=== PATIENT | female | born 1965 | race Caucasian/White ===

== ENCOUNTER 2017-07-07 12:40 | Inpatient (IN) | payer MEDICARE, MEDICAID ==
[~2017-07-07] VITALS: Ht 157.5 cm; Wt 60.8 kg
[2017-07-07 16:08] VITALS: BP 110/65
[2017-07-07] MEDS ORDERED: Norco 5mg/325mg tab ORAL PRN (17:45)
[2017-07-07] MEDS ORDERED: Norco 10mg/325mg tab ORAL PRN (17:45)
--- NOTE | 2017-07-07 17:50 | History & Physical ---
History and Physical History & Physicial Dictated for Int med-Dr Carranza no. [id number]. AGAPITO CHAPARRO Jul 07, 2017 17:50
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
[2017-07-07] MEDS: Levofloxacin 500mg tab ORAL SCH (19:05)
[2017-07-07 20:00] VITALS: BP 98/66
[2017-07-07 20:08] LABS: BASOPHILS % (AUTO) 1.1 % (0.0-2.0); EOSINOPHILS % (AUTO) 1.5 % (0.0-3.0); LYMPHOCYTES % (AUTO) 30.1 % (20.0-45.0); MEAN CORPUSCULAR HEMOGLOBIN 32.1 PG (27.0-31.0); MEAN CORPUSCULAR HGB CONC 33.9 G/DL (32.0-36.0); MEAN CORPUSCULAR VOLUME 95 FL (80-99); MEAN PLATELET VOLUME 9.4 FL (6.5-10.1); MONOCYTES % (AUTO) 8.1 % (1.0-10.0); NEUTROPHILS % (AUTO) 59.1 % (45.0-75.0); PLATELET COUNT 153 K/UL (150-450); RED BLOOD COUNT 3.69 M/UL (4.20-5.40); RED CELL DISTRIBUTION WIDTH 12.1 % (11.6-14.8); WHITE BLOOD COUNT 4.7 K/UL (4.8-10.8)
[2017-07-07 20:21] LABS: ALANINE AMINOTRANSFERASE 6 U/L (3-33); ALBUMIN/GLOBULIN RATIO 2.2 (1.0-2.7); ANION GAP 10 (5-15); ASPARTATE AMINO TRANSFERASE 11 U/L (5-40); CALCIUM 8.7 mg/dL (8.6-10.2); CARBON DIOXIDE 24 mEQ/L (20-30); CHLORIDE 106 mEQ/L (98-107); CREATININE 0.9 mg/dL (0.5-0.9); GLOMERULAR FILTRATION RATE > 60 mL/min (>60); HEMOLYSIS 7; POTASSIUM 4.3 mEQ/L (3.4-4.9); SODIUM 140 mEQ/L (135-145); TOTAL PROTEIN 5.2 g/dL (6.6-8.7)
[2017-07-07] MEDS: metroNIDAZOLE 500mg tab ORAL SCH (22:04)
[2017-07-08] VITALS: BP 95/61
[2017-07-08 04:00] VITALS: BP 99/64
[2017-07-08] MEDS: metroNIDAZOLE 500mg tab ORAL SCH ×3 (05:31→21:18)
[2017-07-08 07:12] LABS: BASOPHILS % (AUTO) 0.9 % (0.0-2.0); EOSINOPHILS % (AUTO) 2.7 % (0.0-3.0); LYMPHOCYTES % (AUTO) 33.3 % (20.0-45.0); MEAN CORPUSCULAR HEMOGLOBIN 31.4 PG (27.0-31.0); MEAN CORPUSCULAR HGB CONC 33.1 G/DL (32.0-36.0); MEAN CORPUSCULAR VOLUME 95 FL (80-99); MEAN PLATELET VOLUME 10.3 FL (6.5-10.1); MONOCYTES % (AUTO) 9.1 % (1.0-10.0); PLATELET COUNT 163 K/UL (150-450); RED BLOOD COUNT 3.74 M/UL (4.20-5.40); RED CELL DISTRIBUTION WIDTH 11.9 % (11.6-14.8); WHITE BLOOD COUNT 4.3 K/UL (4.8-10.8)
[2017-07-08 07:28] LABS: ANION GAP 8 (5-15); CARBON DIOXIDE 24 mEQ/L (20-30); CHLORIDE 108 mEQ/L (98-107); CREATININE 0.8 mg/dL (0.5-0.9); GLOMERULAR FILTRATION RATE > 60 mL/min (>60); HEMOLYSIS 2; POTASSIUM 3.7 mEQ/L (3.4-4.9); SODIUM 140 mEQ/L (135-145)
[2017-07-08 07:34] LABS: ALANINE AMINOTRANSFERASE 6 U/L (3-33); ALBUMIN/GLOBULIN RATIO 1.6 (1.0-2.7); AMYLASE 60 U/L (10-110); ANION GAP 8 (5-15); ASPARTATE AMINO TRANSFERASE 10 U/L (5-40); CALCIUM 9.1 mg/dL (8.6-10.2); CARBON DIOXIDE 24 mEQ/L (20-30); CHLORIDE 109 mEQ/L (98-107); CREATININE 0.8 mg/dL (0.5-0.9); GLOMERULAR FILTRATION RATE > 60 mL/min (>60); HEMOLYSIS 5; LIPASE 40 U/L (< 60); POTASSIUM 3.6 mEQ/L (3.4-4.9); SODIUM 141 mEQ/L (135-145); TOTAL PROTEIN 5.3 g/dL (6.6-8.7)
[2017-07-08 07:54] VITALS: BP 98/67
[2017-07-08] MEDS: Levofloxacin 500mg tab ORAL SCH (08:40)
[2017-07-08] MEDS: Heparin 5000 units/ml inj SUBQ SCH ×2 (08:46→20:53)
--- NOTE | 2017-07-08 11:02 | Diagnostic Imaging Report ---
Indication:Abdominal pain Technique: Grayscale and duplex Doppler imaging of the abdomen performed. Comparison: None Findings: The liver, demonstrated part of the pancreas, aorta and IVC, both kidneys, spleen appear unremarkable. Gallbladder is contracted. There is no biliary ductal dilatation identified. CBD 3 mm. Doppler evaluation of the main portal vein shows patency. There is no ascites. No hydronephrosis seen. Impression: No acute findings appreciated
[2017-07-08 12:12] VITALS: BP 117/75
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
[2017-07-08 16:00] VITALS: BP 112/74
--- NOTE | 2017-07-08 16:16 | Internal Med Progress Note ---
Subjective Date of Service: Jul 08, 2017 Physician Name Rusty Chaparro Attending Physician Pablito Carranza MD Current Medications Medications (Trade) Dose Ordered Sig/Ruel Route PRN Reason Start Time Stop Time Status Last Admin Dose Admin Acetaminophen (Tylenol) 650 mg Q4H PRN ORAL Mild Pain (Pain Scale 1-3) 07/07/17 17:30 08/06/17 17:29 Acetaminophen (Tylenol) 650 mg Q4H PRN ORAL fever 07/07/17 17:30 08/06/17 17:29 Acetaminophen/ Hydrocodone Bitart ([place] 10/325) 1 ea Q4H PRN ORAL Severe Pain (Pain Scale 7-10) 07/07/17 17:45 07/14/17 17:44 07/07/17 19:06 Acetaminophen/ Hydrocodone Bitart ([place] 5/325) 1 tab Q4H PRN ORAL Moderate Pain (Pain Scale 4-6) 07/07/17 17:45 07/14/17 17:44 Dextrose (Dextrose 50%) STAT PRN IV Hypoglycemia 07/07/17 17:30 08/06/17 17:29 Heparin Sodium (Porcine) (Heparin 5000 units/ml) 5,000 units EVERY 12 HOURS SUBQ 07/08/17 09:00 08/07/17 08:59 07/08/17 08:46 Levofloxacin (Levaquin) 500 mg DAILY ORAL 07/07/17 19:00 07/14/17 18:59 07/08/17 08:40 Metronidazole (Flagyl) 500 mg Q8HR ORAL 07/07/17 22:00 07/14/17 21:59 07/08/17 13:35 Pantoprazole (Protonix) 40 mg ACBREAKFAST ORAL 07/09/17 06:30 08/06/17 18:59 Sodium Chloride (Sodium Chloride 1000ml bag) 1,000 ml @ 75 mls/hr [id number] IVLG 07/07/17 19:00 08/06/17 18:59 07/08/17 08:41 Allergies: Coded Allergies: No Known Allergies (Unverified , 07/07/17) ROS Limited/Unobtainable: No Constitutional: Reports: no symptoms HEENT: Reports: no symptoms Cardiovascular: Reports: no symptoms Respiratory: Reports: no symptoms Gastrointestinal/Abdominal: Reports: abdominal pain Genitourinary: Reports: no symptoms Neurologic/Psychiatric: Reports: no symptoms Subjective 51 YO F admitted with RUQ pain. Cover for Int Med-Dr Carranza. Await GI consult Objective Last Vital Signs Date Time Temp Pulse Resp B/P Pulse Ox O2 Delivery O2 Flow Rate FiO2 07/08/17 12:12 97.4 55 18 117/75 97 Room Air Laboratory Tests Test 07/07/17 19:35 07/08/17 04:50 White Blood Count 4.7 K/UL (4.8-10.8) L 4.3 K/UL (4.8-10.8) L Red Blood Count 3.69 M/UL (4.20-5.40) L 3.74 M/UL (4.20-5.40) L Hemoglobin 11.8 G/DL (12.0-16.0) L 11.7 G/DL (12.0-16.0) L Hematocrit 34.9 % (37.0-47.0) L 35.4 % (37.0-47.0) L Mean Corpuscular Volume 95 FL (80-99) 95 FL (80-99) Mean Corpuscular Hemoglobin 32.1 PG (27.0-31.0) H 31.4 PG (27.0-31.0) H Mean Corpuscular Hemoglobin Concent 33.9 G/DL (32.0-36.0) 33.1 G/DL (32.0-36.0) Red Cell Distribution Width 12.1 % (11.6-14.8) 11.9 % (11.6-14.8) Platelet Count 153 K/UL (150-450) 163 K/UL (150-450) Mean Platelet Volume 9.4 FL (6.5-10.1) 10.3 FL (6.5-10.1) H Neutrophils (%) (Auto) 59.1 % (45.0-75.0) 54.0 % (45.0-75.0) Lymphocytes (%) (Auto) 30.1 % (20.0-45.0) 33.3 % (20.0-45.0) Monocytes (%) (Auto) 8.1 % (1.0-10.0) 9.1 % (1.0-10.0) Eosinophils (%) (Auto) 1.5 % (0.0-3.0) 2.7 % (0.0-3.0) Basophils (%) (Auto) 1.1 % (0.0-2.0) 0.9 % (0.0-2.0) Sodium Level 140 mEQ/L (135-145) 140 mEQ/L (135-145) Potassium Level 4.3 mEQ/L (3.4-4.9) 3.7 mEQ/L (3.4-4.9) Chloride Level 106 mEQ/L (98-107) 108 mEQ/L (98-107) H Carbon Dioxide Level 24 mEQ/L (20-30) 24 mEQ/L (20-30) Anion Gap 10 (5-15) 8 (5-15) Blood Urea Nitrogen 24 mg/dL (7-23) H 22 mg/dL (7-23) Creatinine 0.9 mg/dL (0.5-0.9) 0.8 mg/dL (0.5-0.9) Estimat Glomerular Filtration Rate > 60 mL/min (>60) > 60 mL/min (>60) Glucose Level 107 mg/dL (74-106) H 99 mg/dL (74-106) Calcium Level 8.7 mg/dL (8.6-10.2) 9.0 mg/dL (8.6-10.2) Total Bilirubin 0.4 mg/dL (0.0-1.2) 0.3 mg/dL (0.0-1.2) Aspartate Amino Transf (AST/SGOT) 11 U/L (5-40) 10 U/L (5-40) Alanine Aminotransferase (ALT/SGPT) 6 U/L (3-33) 6 U/L (3-33) Alkaline Phosphatase 69 U/L (35-104) 63 U/L (35-104) Total Protein 5.2 g/dL (6.6-8.7) L 5.3 g/dL (6.6-8.7) L Albumin 3.6 g/dL (3.5-5.2) 3.3 g/dL (3.5-5.2) L Globulin 1.6 g/dL 2.0 g/dL Albumin/Globulin Ratio 2.2 (1.0-2.7) 1.6 (1.0-2.7) Activated Partial Thromboplast Time 29 SEC (23-33) Amylase Level 60 U/L (10-110) Lipase 40 U/L (< 60) Intake and Output 07/07/17 07/08/17 19:00 07:00 Intake Total 120 ml 1305 ml Balance 120 ml 1305 ml Intake Oral 120 ml 480 ml IV Total 825 ml # Voids 2 Objective General: alert, cooperative, no distress, appears stated age Head: normocephalic, without obvious abnormality, atraumatic Eyes: conjunctivae/corneas clear. PERRL, EOM's intact Throat: lips, mucosa, and tongue normal. MMM Neck: supple, symmetrical, trachea midline, and no JVD Lungs: clear to auscultation bilaterally Heart: regular rate and rhythm, S1, S2 normal, no murmur, click, rub or gallop Abdomen: soft, non-tender, non-distended, bowel sounds normal; no masses or organomegaly Extremities: extremities normal, atraumatic, no cyanosis or edema Pulses: 2+ and symmetric Skin: skin color, texture, turgor normal; no rashes or lesions Neurologic: grossly normal, no focal deficits Assessment/Plan Problem List: (1) Diverticulosis Assessment & Plan: Cont flagyl and levaquin (2) PUD (peptic ulcer disease) Assessment & Plan: Cont protonix. AWait GI consult. (3) RUQ pain Assessment & Plan: ?gastritis vs peptic ulcer? Await GI consult. Status: not improved RUSTY CHAPARRO Jul 08, 2017 16:16
--- NOTE | 2017-07-08 18:24 | General Progress Note ---
Assessment/Plan Assessment/Plan GI Consult Dictated Will schedule for EGD in am. Thank you Salima Thompson MD Subjective Allergies: Coded Allergies: No Known Allergies (Unverified , 07/07/17) Objective Last 24 Hour Vital Signs Date Time Temp Pulse Resp B/P Pulse Ox O2 Delivery O2 Flow Rate FiO2 07/08/17 16:00 97.7 61 18 112/74 96 Room Air 07/08/17 12:12 97.4 55 18 117/75 97 Room Air 07/08/17 07:54 97.5 57 18 98/67 97 Room Air 07/08/17 04:00 97.7 63 18 99/64 97 Room Air 07/08/17 00:00 97.9 61 18 95/61 96 Room Air 07/07/17 20:00 97.9 59 18 98/66 95 Room Air Intake and Output 07/07/17 07/08/17 19:00 07:00 Intake Total 120 ml 1305 ml Balance 120 ml 1305 ml Intake Oral 120 ml 480 ml IV Total 825 ml # Voids 2 Laboratory Tests 07/07/17 19:35: White Blood Count 4.7L, Red Blood Count 3.69L, Hemoglobin 11.8L, Hematocrit 34.9L, Mean Corpuscular Volume 95, Mean Corpuscular Hemoglobin 32.1H, Mean Corpuscular Hemoglobin Concent 33.9, Red Cell Distribution Width 12.1, Platelet Count 153, Mean Platelet Volume 9.4, Neutrophils (%) (Auto) 59.1, Lymphocytes (% ) (Auto) 30.1, Monocytes (%) (Auto) 8.1, Eosinophils (%) (Auto) 1.5, Basophils ( %) (Auto) 1.1, Sodium Level 140, Potassium Level 4.3, Chloride Level 106, Carbon Dioxide Level 24, Anion Gap 10, Blood Urea Nitrogen 24H, Creatinine 0.9, Estimat Glomerular Filtration Rate > 60, Glucose Level 107H, Calcium Level 8.7, Total Bilirubin 0.4, Aspartate Amino Transf (AST/SGOT) 11, Alanine Aminotransferase (ALT/SGPT) 6, Alkaline Phosphatase 69, Total Protein 5.2L, Albumin 3.6, Globulin 1.6, Albumin/Globulin Ratio 2.2 07/08/17 04:50: White Blood Count 4.3L, Red Blood Count 3.74L, Hemoglobin 11.7L, Hematocrit 35.4L, Mean Corpuscular Volume 95, Mean Corpuscular Hemoglobin 31.4H, Mean Corpuscular Hemoglobin Concent 33.1, Red Cell Distribution Width 11.9, Platelet Count 163, Mean Platelet Volume 10.3H, Neutrophils (%) (Auto) 54.0, Lymphocytes (%) (Auto) 33.3, Monocytes (%) (Auto) 9.1, Eosinophils (%) (Auto) 2.7, Basophils (%) (Auto) 0.9, Sodium Level 140, Potassium Level 3.7, Chloride Level 108H, Carbon Dioxide Level 24, Anion Gap 8, Blood Urea Nitrogen 22, Creatinine 0.8, Estimat Glomerular Filtration Rate > 60, Glucose Level 99, Calcium Level 9.0, Total Bilirubin 0.3, Aspartate Amino Transf (AST/SGOT) 10, Alanine Aminotransferase (ALT/SGPT) 6, Alkaline Phosphatase 63, Total Protein 5.3L, Albumin 3.3L, Globulin 2.0, Albumin/Globulin Ratio 1.6, Activated Partial Thromboplast Time 29, Amylase Level 60, Lipase 40 Height (Feet): 5 Height (Inches): 2.50 Weight (Pounds): 135 MICHEALMINDAAGA Jul 08, 2017 18:24
[2017-07-08 19:56] VITALS: BP 112/79
[2017-07-09] VITALS: BP 116/78
--- NOTE | 2017-07-09 02:30 | Consultation ---
ERROR in dictation Dictated again Salima Thompson MD [facility]ENTERPric[facility]
[2017-07-09 04:00] VITALS: BP 97/77
--- NOTE | 2017-07-09 04:30 | Consultation ---
DATE OF CONSULTATION: 07/08/2017 GASTROENTEROLOGY CONSULTATION CHIEF COMPLAINT: Abdominal pain. HISTORY OF PRESENT ILLNESS: The patient is a 51-year-old white woman, who presented to [place] and was subsequently transferred to [facility] for evaluation of abdominal pain. The patient stated that pain started about three days ago and was not associated with any nausea or vomiting, diarrhea or constipation, or hematochezia or melena. She has, however, had a history of peptic ulcer disease and has required a laparoscopic surgery for this ulcer, although the details are not available. She has not been taking any nonsteroidal anti-inflammatory drugs or antibiotics. She is able to keep food down. PAST MEDICAL HISTORY: History of asthma and history of peptic ulcer disease. PAST SURGICAL HISTORY: Status post laparoscopy for peptic ulcer disease. MEDICATIONS: See chart list for details. SOCIAL HISTORY: The patient smokes one pack of cigarettes per day. She does not drink alcohol. She has five children. Currently, she has a fiancee. She is homeless. FAMILY HISTORY: Noncontributory. REVIEW OF SYSTEMS: Otherwise negative. PHYSICAL EXAMINATION: GENERAL: Thin white woman, seen in a room, in no distress. HEENT: Normocephalic atraumatic. Sclerae anicteric. Dentition was poor. NECK: Supple. CHEST: Clear to auscultation. CARDIOVASCULAR: Revealed a regular rate. ABDOMEN: Soft, flat with good bowel sounds. EXTREMITIES: Revealed no edema. LABORATORY DATA: Noted. Ultrasound as noted. ASSESSMENT: This patient presents with epigastric abdominal pain of unclear etiology. The patient presented with history of peptic ulcer disease and therefore an endoscopy can be done to rule out upper GI tract ulcers. She had a negative abdominal ultrasound, which makes somewhat less likely. Liver enzymes were also not elevated. The patient was also advised that she required eventual screening colonoscopy. This as an outpatient. RECOMMENDATIONS: 1. Proton pump inhibitor. 2. Endoscopy tomorrow. 3. Outpatient screening colonoscopy. 4. Follow exam and symptoms. Thank you for asking me to participate in the care of this patient. Salima Thompson M.D. DR: NANCY JOB#: [id number] CC:
[2017-07-09] MEDS: metroNIDAZOLE 500mg tab ORAL SCH ×3 (05:07→21:08)
[2017-07-09 07:36] LABS: BASOPHILS % (AUTO) 1.4 % (0.0-2.0); EOSINOPHILS % (AUTO) 2.7 % (0.0-3.0); LYMPHOCYTES % (AUTO) 36.6 % (20.0-45.0); MEAN CORPUSCULAR HEMOGLOBIN 32.1 PG (27.0-31.0); MEAN CORPUSCULAR HGB CONC 33.8 G/DL (32.0-36.0); MEAN CORPUSCULAR VOLUME 95 FL (80-99); MEAN PLATELET VOLUME 9.6 FL (6.5-10.1); MONOCYTES % (AUTO) 8.9 % (1.0-10.0); NEUTROPHILS % (AUTO) 50.4 % (45.0-75.0); PLATELET COUNT 181 K/UL (150-450); RED BLOOD COUNT 3.99 M/UL (4.20-5.40); RED CELL DISTRIBUTION WIDTH 11.8 % (11.6-14.8); WHITE BLOOD COUNT 3.8 K/UL (4.8-10.8)
[2017-07-09 07:53] LABS: AMYLASE 63 U/L (10-110); ANION GAP 9 (5-15); CALCIUM 9.4 mg/dL (8.6-10.2); CARBON DIOXIDE 27 mEQ/L (20-30); CHLORIDE 104 mEQ/L (98-107); CREATININE 0.9 mg/dL (0.5-0.9); GLOMERULAR FILTRATION RATE > 60 mL/min (>60); HEMOLYSIS 5; LIPASE 36 U/L (< 60); POTASSIUM 4.2 mEQ/L (3.4-4.9); SODIUM 140 mEQ/L (135-145)
[2017-07-09 08:00] VITALS: BP 101/75
[2017-07-09] MEDS ORDERED: 1/2 NS 1000ml IV ONE (09:47)
--- NOTE | 2017-07-09 10:28 | GI Progress Note ---
Assessment/Plan Problems: (1) RUQ pain ICD Codes: R10.11 - Right upper quadrant pain SNOMED: 745661222 (2) Diverticulosis ICD Codes: K57.90 - Diverticulosis of intestine, part unspecified, without perforation or abscess without bleeding SNOMED: 413363846 (3) PUD (peptic ulcer disease) ICD Codes: K27.9 - Peptic ulcer, site unspecified, unspecified as acute or chronic, without hemorrhage or perforation SNOMED: 86786846 (4) Abdominal distention ICD Codes: R14.0 - Abdominal distension (gaseous) SNOMED: 60422742 Status: unchanged Status Narrative Discussed with Dr. Payan. Assessment/Plan abdominal US reviewed >> unremarkable EGD cancelled >> pt refused symptomatic treatment pain mgmt ppi advance diet outpatient GI procedures fu labs Subjective Subjective abdominal pain present Objective Last 24 Hour Vital Signs Date Time Temp Pulse Resp B/P Pulse Ox O2 Delivery O2 Flow Rate FiO2 07/09/17 08:00 97.3 64 20 101/75 97 Room Air 07/09/17 04:00 97.6 59 18 97/77 96 Room Air 07/09/17 00:00 97.8 58 18 116/78 98 Room Air 07/08/17 19:56 97.8 59 18 112/79 98 Room Air 07/08/17 16:00 97.7 61 18 112/74 96 Room Air 07/08/17 12:12 97.4 55 18 117/75 97 Room Air Intake and Output 07/08/17 07/09/17 19:00 07:00 Intake Total 1935 ml 375 ml Balance 1935 ml 375 ml Intake Oral 960 ml IV Total 975 ml 375 ml # Voids 3 2 # Bowel Movements 1 Laboratory Tests Test 07/09/17 05:50 White Blood Count 3.8 K/UL (4.8-10.8) L Red Blood Count 3.99 M/UL (4.20-5.40) L Hemoglobin 12.8 G/DL (12.0-16.0) Hematocrit 37.9 % (37.0-47.0) Mean Corpuscular Volume 95 FL (80-99) Mean Corpuscular Hemoglobin 32.1 PG (27.0-31.0) H Mean Corpuscular Hemoglobin Concent 33.8 G/DL (32.0-36.0) Red Cell Distribution Width 11.8 % (11.6-14.8) Platelet Count 181 K/UL (150-450) Mean Platelet Volume 9.6 FL (6.5-10.1) Neutrophils (%) (Auto) 50.4 % (45.0-75.0) Lymphocytes (%) (Auto) 36.6 % (20.0-45.0) Monocytes (%) (Auto) 8.9 % (1.0-10.0) Eosinophils (%) (Auto) 2.7 % (0.0-3.0) Basophils (%) (Auto) 1.4 % (0.0-2.0) Sodium Level 140 mEQ/L (135-145) Potassium Level 4.2 mEQ/L (3.4-4.9) Chloride Level 104 mEQ/L (98-107) Carbon Dioxide Level 27 mEQ/L (20-30) Anion Gap 9 (5-15) Blood Urea Nitrogen 18 mg/dL (7-23) Creatinine 0.9 mg/dL (0.5-0.9) Estimat Glomerular Filtration Rate > 60 mL/min (>60) Glucose Level 94 mg/dL (74-106) Calcium Level 9.4 mg/dL (8.6-10.2) Amylase Level 63 U/L (10-110) Lipase 36 U/L (< 60) Height (Feet): 5 Height (Inches): 2.00 Weight (Pounds): 134 General Appearance: no apparent distress, alert Cardiovascular: normal rate Respiratory/Chest: normal breath sounds, no respiratory distress Abdominal Exam: normal bowel sounds, non tender, soft Extremities: normal range of motion Alessandra Miramontes N.P. Jul 09, 2017 10:28
[2017-07-09] MEDS: Levofloxacin 500mg tab ORAL SCH (10:29)
[2017-07-09] MEDS: Heparin 5000 units/ml inj SUBQ SCH ×2 (10:34→21:08)
[2017-07-09 12:00] VITALS: BP 108/70
[2017-07-09 15:58] VITALS: BP 95/56
--- NOTE | 2017-07-09 18:59 | Internal Med Progress Note ---
Subjective Date of Service: Jul 09, 2017 Physician Name Rusty Chaparro Attending Physician Pablito Carranza MD Current Medications Medications (Trade) Dose Ordered Sig/Ruel Route PRN Reason Start Time Stop Time Status Last Admin Dose Admin Acetaminophen (Tylenol) 650 mg Q4H PRN ORAL Mild Pain (Pain Scale 1-3) 07/07/17 17:30 08/06/17 17:29 Acetaminophen (Tylenol) 650 mg Q4H PRN ORAL fever 07/07/17 17:30 08/06/17 17:29 Acetaminophen/ Hydrocodone Bitart ([place] 10/325) 1 ea Q4H PRN ORAL Severe Pain (Pain Scale 7-10) 07/07/17 17:45 07/14/17 17:44 07/07/17 19:06 Acetaminophen/ Hydrocodone Bitart ([place] 5/325) 1 tab Q4H PRN ORAL Moderate Pain (Pain Scale 4-6) 07/07/17 17:45 07/14/17 17:44 Dextrose (Dextrose 50%) STAT PRN IV Hypoglycemia 07/07/17 17:30 08/06/17 17:29 Heparin Sodium (Porcine) (Heparin 5000 units/ml) 5,000 units EVERY 12 HOURS SUBQ 07/08/17 09:00 08/07/17 08:59 07/09/17 10:34 Levofloxacin (Levaquin) 500 mg DAILY ORAL 07/07/17 19:00 07/14/17 18:59 07/09/17 10:29 Metronidazole (Flagyl) 500 mg Q8HR ORAL 07/07/17 22:00 07/14/17 21:59 07/09/17 14:36 Pantoprazole (Protonix) 40 mg ACBREAKFAST ORAL 07/09/17 06:30 08/06/17 18:59 Sodium Chloride (Sodium Chloride 1000ml bag) 1,000 ml @ 75 mls/hr [id number] IVLG 07/07/17 19:00 08/06/17 18:59 07/08/17 21:18 Allergies: Coded Allergies: No Known Allergies (Unverified , 07/07/17) ROS Limited/Unobtainable: No Constitutional: Reports: no symptoms HEENT: Reports: no symptoms Cardiovascular: Reports: no symptoms Respiratory: Reports: no symptoms Gastrointestinal/Abdominal: Reports: abdominal pain Genitourinary: Reports: no symptoms Neurologic/Psychiatric: Reports: no symptoms Subjective 51 YO F admitted with RUQ pain. Cover for Int Med-Dr Carranza. See GI consult- patient refused endoscopy Objective Last Vital Signs Date Time Temp Pulse Resp B/P Pulse Ox O2 Delivery O2 Flow Rate FiO2 07/09/17 15:58 98.2 82 18 95/56 98 Room Air Laboratory Tests Test 07/09/17 05:50 White Blood Count 3.8 K/UL (4.8-10.8) L Red Blood Count 3.99 M/UL (4.20-5.40) L Hemoglobin 12.8 G/DL (12.0-16.0) Hematocrit 37.9 % (37.0-47.0) Mean Corpuscular Volume 95 FL (80-99) Mean Corpuscular Hemoglobin 32.1 PG (27.0-31.0) H Mean Corpuscular Hemoglobin Concent 33.8 G/DL (32.0-36.0) Red Cell Distribution Width 11.8 % (11.6-14.8) Platelet Count 181 K/UL (150-450) Mean Platelet Volume 9.6 FL (6.5-10.1) Neutrophils (%) (Auto) 50.4 % (45.0-75.0) Lymphocytes (%) (Auto) 36.6 % (20.0-45.0) Monocytes (%) (Auto) 8.9 % (1.0-10.0) Eosinophils (%) (Auto) 2.7 % (0.0-3.0) Basophils (%) (Auto) 1.4 % (0.0-2.0) Sodium Level 140 mEQ/L (135-145) Potassium Level 4.2 mEQ/L (3.4-4.9) Chloride Level 104 mEQ/L (98-107) Carbon Dioxide Level 27 mEQ/L (20-30) Anion Gap 9 (5-15) Blood Urea Nitrogen 18 mg/dL (7-23) Creatinine 0.9 mg/dL (0.5-0.9) Estimat Glomerular Filtration Rate > 60 mL/min (>60) Glucose Level 94 mg/dL (74-106) Calcium Level 9.4 mg/dL (8.6-10.2) Amylase Level 63 U/L (10-110) Lipase 36 U/L (< 60) Intake and Output 07/08/17 07/09/17 19:00 07:00 Intake Total 1935 ml 375 ml Balance 1935 ml 375 ml Intake Oral 960 ml IV Total 975 ml 375 ml # Voids 3 2 # Bowel Movements 1 Objective General: alert, cooperative, no distress, appears stated age Head: normocephalic, without obvious abnormality, atraumatic Eyes: conjunctivae/corneas clear. PERRL, EOM's intact Throat: lips, mucosa, and tongue normal. MMM Neck: supple, symmetrical, trachea midline, and no JVD Lungs: clear to auscultation bilaterally Heart: regular rate and rhythm, S1, S2 normal, no murmur, click, rub or gallop Abdomen: soft, non-tender, non-distended, bowel sounds normal; no masses or organomegaly Extremities: extremities normal, atraumatic, no cyanosis or edema Pulses: 2+ and symmetric Skin: skin color, texture, turgor normal; no rashes or lesions Neurologic: grossly normal, no focal deficits Assessment/Plan Problem List: (1) Diverticulosis Assessment & Plan: Cont flagyl and levaquin (2) PUD (peptic ulcer disease) Assessment & Plan: Cont protonix. AWait GI consult. (3) RUQ pain Assessment & Plan: ?gastritis vs peptic ulcer? See - GI consult.; patient refused endoscopy Status: progressing Assessment/Plan discharge planning RUSTY CHAPARRO Jul 09, 2017 18:59
[2017-07-09 19:51] VITALS: BP 94/57
[2017-07-10] VITALS: BP 97/58
[2017-07-10 03:51] VITALS: BP 106/53
[2017-07-10] MEDS: metroNIDAZOLE 500mg tab ORAL SCH ×3 (06:28→20:28)
[2017-07-10 06:35] LABS: BASOPHILS % (AUTO) 1.2 % (0.0-2.0); EOSINOPHILS % (AUTO) 3.2 % (0.0-3.0); LYMPHOCYTES % (AUTO) 32.2 % (20.0-45.0); MEAN CORPUSCULAR HEMOGLOBIN 31.7 PG (27.0-31.0); MEAN CORPUSCULAR HGB CONC 33.3 G/DL (32.0-36.0); MEAN CORPUSCULAR VOLUME 95 FL (80-99); MEAN PLATELET VOLUME 9.5 FL (6.5-10.1); MONOCYTES % (AUTO) 8.5 % (1.0-10.0); NEUTROPHILS % (AUTO) 54.9 % (45.0-75.0); PLATELET COUNT 195 K/UL (150-450); RED BLOOD COUNT 4.14 M/UL (4.20-5.40); RED CELL DISTRIBUTION WIDTH 12.2 % (11.6-14.8); WHITE BLOOD COUNT 4.1 K/UL (4.8-10.8)
[2017-07-10 06:52] LABS: ANION GAP 9 (5-15); CALCIUM 9.7 mg/dL (8.6-10.2); CARBON DIOXIDE 28 mEQ/L (20-30); CHLORIDE 102 mEQ/L (98-107); CREATININE 0.9 mg/dL (0.5-0.9); GLOMERULAR FILTRATION RATE > 60 mL/min (>60); HEMOLYSIS 3; POTASSIUM 4.9 mEQ/L (3.4-4.9); SODIUM 139 mEQ/L (135-145)
[2017-07-10 08:00] VITALS: BP 104/73
[2017-07-10] MEDS: Levofloxacin 500mg tab ORAL SCH (09:10)
[2017-07-10] MEDS: Heparin 5000 units/ml inj SUBQ SCH ×2 (09:11→20:30)
[2017-07-10 12:00] VITALS: BP 100/68
--- NOTE | 2017-07-10 12:42 | GI Progress Note ---
Assessment/Plan Problems: (1) RUQ pain ICD Codes: R10.11 - Right upper quadrant pain SNOMED: 529459839 (2) Diverticulosis ICD Codes: K57.90 - Diverticulosis of intestine, part unspecified, without perforation or abscess without bleeding SNOMED: 880863627 (3) PUD (peptic ulcer disease) ICD Codes: K27.9 - Peptic ulcer, site unspecified, unspecified as acute or chronic, without hemorrhage or perforation SNOMED: 53248688 (4) Abdominal distention ICD Codes: R14.0 - Abdominal distension (gaseous) SNOMED: 20230875 Status: stable, unchanged Status Narrative Discussed with Dr. Payan. Assessment/Plan abdominal US reviewed >> unremarkable EGD cancelled >> pt refused symptomatic treatment pain mgmt ppi advance diet outpatient GI procedures fu labs Subjective Subjective abdominal pain Objective Last 24 Hour Vital Signs Date Time Temp Pulse Resp B/P Pulse Ox O2 Delivery O2 Flow Rate FiO2 07/10/17 08:00 97.8 54 18 104/73 99 Room Air 07/10/17 03:51 95.9 52 19 106/53 97 Room Air 07/10/17 00:00 97.6 59 18 97/58 96 Room Air 07/09/17 19:51 97.9 60 18 94/57 97 Room Air 07/09/17 15:58 98.2 82 18 95/56 98 Room Air Intake and Output 07/09/17 07/10/17 19:00 07:00 Intake Total 840 ml 225 ml Output Total 600 ml Balance 840 ml -375 ml Intake Oral 840 ml IV Total 0 ml 225 ml Output Urine Total 600 ml # Voids 5 # Bowel Movements 1 1 Laboratory Tests Test 07/10/17 05:40 White Blood Count 4.1 K/UL (4.8-10.8) L Red Blood Count 4.14 M/UL (4.20-5.40) L Hemoglobin 13.2 G/DL (12.0-16.0) Hematocrit 39.5 % (37.0-47.0) Mean Corpuscular Volume 95 FL (80-99) Mean Corpuscular Hemoglobin 31.7 PG (27.0-31.0) H Mean Corpuscular Hemoglobin Concent 33.3 G/DL (32.0-36.0) Red Cell Distribution Width 12.2 % (11.6-14.8) Platelet Count 195 K/UL (150-450) Mean Platelet Volume 9.5 FL (6.5-10.1) Neutrophils (%) (Auto) 54.9 % (45.0-75.0) Lymphocytes (%) (Auto) 32.2 % (20.0-45.0) Monocytes (%) (Auto) 8.5 % (1.0-10.0) Eosinophils (%) (Auto) 3.2 % (0.0-3.0) H Basophils (%) (Auto) 1.2 % (0.0-2.0) Sodium Level 139 mEQ/L (135-145) Potassium Level 4.9 mEQ/L (3.4-4.9) Chloride Level 102 mEQ/L (98-107) Carbon Dioxide Level 28 mEQ/L (20-30) Anion Gap 9 (5-15) Blood Urea Nitrogen 21 mg/dL (7-23) Creatinine 0.9 mg/dL (0.5-0.9) Estimat Glomerular Filtration Rate > 60 mL/min (>60) Glucose Level 115 mg/dL (74-106) H Calcium Level 9.7 mg/dL (8.6-10.2) Height (Feet): 5 Height (Inches): 2.00 Weight (Pounds): 134 General Appearance: no apparent distress, alert Cardiovascular: normal rate Respiratory/Chest: normal breath sounds, no respiratory distress Abdominal Exam: normal bowel sounds, non tender, soft Extremities: normal range of motion Alessandra Miramontes N.P. Jul 10, 2017 12:42
--- NOTE | 2017-07-10 15:49 | Pulmonology Progress Note ---
Assessment/Plan Problems: (1) RUQ pain (2) Abdominal distention Assessment/Plan NPO IV fluids for EGD symptomatic treatment social service consult Subjective ROS Limited/Unobtainable: No Interval Events: late note for 07/09, still c/o pain Allergies: Coded Allergies: No Known Allergies (Unverified , 07/07/17) Objective Last 24 Hour Vital Signs Date Time Temp Pulse Resp B/P Pulse Ox O2 Delivery O2 Flow Rate FiO2 07/10/17 12:00 97.2 58 18 100/68 97 Room Air 07/10/17 08:00 97.8 54 18 104/73 99 Room Air 07/10/17 03:51 95.9 52 19 106/53 97 Room Air 07/10/17 00:00 97.6 59 18 97/58 96 Room Air 07/09/17 19:51 97.9 60 18 94/57 97 Room Air 07/09/17 15:58 98.2 82 18 95/56 98 Room Air Intake and Output 07/09/17 07/10/17 19:00 07:00 Intake Total 840 ml 225 ml Output Total 600 ml Balance 840 ml -375 ml Intake Oral 840 ml IV Total 0 ml 225 ml Output Urine Total 600 ml # Voids 5 # Bowel Movements 1 1 General Appearance: WD/WN HEENT: normocephalic, atraumatic Respiratory/Chest: chest wall non-tender, normal breath sounds Breasts: no masses Cardiovascular: normal peripheral pulses Abdomen: normal bowel sounds, soft, non tender Extremities: no cyanosis Skin: no lesions 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, no motor/sensory deficits Laboratory Tests 07/10/17 05:40: White Blood Count 4.1L, Red Blood Count 4.14L, Hemoglobin 13.2, Hematocrit 39.5 , Mean Corpuscular Volume 95, Mean Corpuscular Hemoglobin 31.7H, Mean Corpuscular Hemoglobin Concent 33.3, Red Cell Distribution Width 12.2, Platelet Count 195, Mean Platelet Volume 9.5, Neutrophils (%) (Auto) 54.9, Lymphocytes (% ) (Auto) 32.2, Monocytes (%) (Auto) 8.5, Eosinophils (%) (Auto) 3.2H, Basophils (%) (Auto) 1.2, Sodium Level 139, Potassium Level 4.9, Chloride Level 102, Carbon Dioxide Level 28, Anion Gap 9, Blood Urea Nitrogen 21, Creatinine 0.9, Estimat Glomerular Filtration Rate > 60, Glucose Level 115H, Calcium Level 9.7 Current Medications Medications (Trade) Dose Ordered Sig/Ruel Route PRN Reason Start Time Stop Time Status Last Admin Dose Admin Acetaminophen (Tylenol) 650 mg Q4H PRN ORAL Mild Pain (Pain Scale 1-3) 07/07/17 17:30 08/06/17 17:29 Acetaminophen (Tylenol) 650 mg Q4H PRN ORAL fever 07/07/17 17:30 08/06/17 17:29 Acetaminophen/ Hydrocodone Bitart ([place] 10/325) 1 ea Q4H PRN ORAL Severe Pain (Pain Scale 7-10) 07/07/17 17:45 07/14/17 17:44 07/07/17 19:06 Acetaminophen/ Hydrocodone Bitart ([place] 5/325) 1 tab Q4H PRN ORAL Moderate Pain (Pain Scale 4-6) 07/07/17 17:45 07/14/17 17:44 Dextrose (Dextrose 50%) STAT PRN IV Hypoglycemia 07/07/17 17:30 08/06/17 17:29 Heparin Sodium (Porcine) (Heparin 5000 units/ml) 5,000 units EVERY 12 HOURS SUBQ 07/08/17 09:00 08/07/17 08:59 07/10/17 09:11 Levofloxacin (Levaquin) 500 mg DAILY ORAL 07/07/17 19:00 07/14/17 18:59 07/10/17 09:10 Metronidazole (Flagyl) 500 mg Q8HR ORAL 07/07/17 22:00 07/14/17 21:59 07/10/17 13:52 Pantoprazole (Protonix) 40 mg ACBREAKFAST ORAL 07/09/17 06:30 08/06/17 18:59 07/10/17 06:28 Sodium Chloride (Sodium Chloride 1000ml bag) 1,000 ml @ 75 mls/hr [id number] IVLG 07/07/17 19:00 08/06/17 18:59 07/10/17 03:57 ARMOND MARTIN Jul 10, 2017 15:49
--- NOTE | 2017-07-10 15:50 | Pulmonology Progress Note ---
Assessment/Plan Problems: (1) RUQ pain (2) Abdominal distention Assessment/Plan pt refused EGD, symptomatic treatment social service consult dc planning Subjective ROS Limited/Unobtainable: No Interval Events: refused EGD Allergies: Coded Allergies: No Known Allergies (Unverified , 07/07/17) Objective Last 24 Hour Vital Signs Date Time Temp Pulse Resp B/P Pulse Ox O2 Delivery O2 Flow Rate FiO2 07/10/17 12:00 97.2 58 18 100/68 97 Room Air 07/10/17 08:00 97.8 54 18 104/73 99 Room Air 07/10/17 03:51 95.9 52 19 106/53 97 Room Air 07/10/17 00:00 97.6 59 18 97/58 96 Room Air 07/09/17 19:51 97.9 60 18 94/57 97 Room Air 07/09/17 15:58 98.2 82 18 95/56 98 Room Air Intake and Output 07/09/17 07/10/17 19:00 07:00 Intake Total 840 ml 225 ml Output Total 600 ml Balance 840 ml -375 ml Intake Oral 840 ml IV Total 0 ml 225 ml Output Urine Total 600 ml # Voids 5 # Bowel Movements 1 1 General Appearance: WD/WN HEENT: normocephalic, atraumatic, anicteric Respiratory/Chest: chest wall non-tender, lungs clear Breasts: no masses Cardiovascular: normal peripheral pulses Abdomen: normal bowel sounds, soft, non tender Genitourinary: normal external genitalia Extremities: no cyanosis 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, 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 gait Lymphatic: no neck adenopathy Laboratory Tests 07/10/17 05:40: White Blood Count 4.1L, Red Blood Count 4.14L, Hemoglobin 13.2, Hematocrit 39.5 , Mean Corpuscular Volume 95, Mean Corpuscular Hemoglobin 31.7H, Mean Corpuscular Hemoglobin Concent 33.3, Red Cell Distribution Width 12.2, Platelet Count 195, Mean Platelet Volume 9.5, Neutrophils (%) (Auto) 54.9, Lymphocytes (% ) (Auto) 32.2, Monocytes (%) (Auto) 8.5, Eosinophils (%) (Auto) 3.2H, Basophils (%) (Auto) 1.2, Sodium Level 139, Potassium Level 4.9, Chloride Level 102, Carbon Dioxide Level 28, Anion Gap 9, Blood Urea Nitrogen 21, Creatinine 0.9, Estimat Glomerular Filtration Rate > 60, Glucose Level 115H, Calcium Level 9.7 Current Medications Medications (Trade) Dose Ordered Sig/Ruel Route PRN Reason Start Time Stop Time Status Last Admin Dose Admin Acetaminophen (Tylenol) 650 mg Q4H PRN ORAL Mild Pain (Pain Scale 1-3) 07/07/17 17:30 08/06/17 17:29 Acetaminophen (Tylenol) 650 mg Q4H PRN ORAL fever 07/07/17 17:30 08/06/17 17:29 Acetaminophen/ Hydrocodone Bitart ([place] 10/325) 1 ea Q4H PRN ORAL Severe Pain (Pain Scale 7-10) 07/07/17 17:45 07/14/17 17:44 07/07/17 19:06 Acetaminophen/ Hydrocodone Bitart ([place] 5/325) 1 tab Q4H PRN ORAL Moderate Pain (Pain Scale 4-6) 07/07/17 17:45 07/14/17 17:44 Dextrose (Dextrose 50%) STAT PRN IV Hypoglycemia 07/07/17 17:30 08/06/17 17:29 Heparin Sodium (Porcine) (Heparin 5000 units/ml) 5,000 units EVERY 12 HOURS SUBQ 07/08/17 09:00 08/07/17 08:59 07/10/17 09:11 Levofloxacin (Levaquin) 500 mg DAILY ORAL 07/07/17 19:00 07/14/17 18:59 07/10/17 09:10 Metronidazole (Flagyl) 500 mg Q8HR ORAL 07/07/17 22:00 07/14/17 21:59 07/10/17 13:52 Pantoprazole (Protonix) 40 mg ACBREAKFAST ORAL 07/09/17 06:30 08/06/17 18:59 07/10/17 06:28 Sodium Chloride (Sodium Chloride 1000ml bag) 1,000 ml @ 75 mls/hr [id number] IVLG 07/07/17 19:00 08/06/17 18:59 07/10/17 03:57 ARMOND MARTIN Jul 10, 2017 15:50
--- NOTE | 2017-07-10 17:01 | Internal Med Progress Note ---
Subjective Date of Service: Jul 10, 2017 Physician Name Rusty Chaparro Attending Physician Pablito Carranza MD Current Medications Medications (Trade) Dose Ordered Sig/Ruel Route PRN Reason Start Time Stop Time Status Last Admin Dose Admin Acetaminophen (Tylenol) 650 mg Q4H PRN ORAL Mild Pain (Pain Scale 1-3) 07/07/17 17:30 08/06/17 17:29 Acetaminophen (Tylenol) 650 mg Q4H PRN ORAL fever 07/07/17 17:30 08/06/17 17:29 Acetaminophen/ Hydrocodone Bitart ([place] 10/325) 1 ea Q4H PRN ORAL Severe Pain (Pain Scale 7-10) 07/07/17 17:45 07/14/17 17:44 07/07/17 19:06 Acetaminophen/ Hydrocodone Bitart ([place] 5/325) 1 tab Q4H PRN ORAL Moderate Pain (Pain Scale 4-6) 07/07/17 17:45 07/14/17 17:44 Dextrose (Dextrose 50%) STAT PRN IV Hypoglycemia 07/07/17 17:30 08/06/17 17:29 Heparin Sodium (Porcine) (Heparin 5000 units/ml) 5,000 units EVERY 12 HOURS SUBQ 07/08/17 09:00 08/07/17 08:59 07/10/17 09:11 Levofloxacin (Levaquin) 500 mg DAILY ORAL 07/07/17 19:00 07/14/17 18:59 07/10/17 09:10 Metronidazole (Flagyl) 500 mg Q8HR ORAL 07/07/17 22:00 07/14/17 21:59 07/10/17 13:52 Pantoprazole (Protonix) 40 mg ACBREAKFAST ORAL 07/09/17 06:30 08/06/17 18:59 07/10/17 06:28 Sodium Chloride (Sodium Chloride 1000ml bag) 1,000 ml @ 75 mls/hr [id number] IVLG 07/07/17 19:00 08/06/17 18:59 07/10/17 03:57 Allergies: Coded Allergies: No Known Allergies (Unverified , 07/07/17) ROS Limited/Unobtainable: No Constitutional: Reports: no symptoms HEENT: Reports: no symptoms Cardiovascular: Reports: no symptoms Respiratory: Reports: no symptoms Gastrointestinal/Abdominal: Reports: abdominal pain Genitourinary: Reports: no symptoms Neurologic/Psychiatric: Reports: no symptoms Subjective 51 YO F admitted with RUQ pain. Cover for Int Med-Dr Carranza. See GI consult- patient refused endoscopy; now agrees to reschedule EGD Objective Last Vital Signs Date Time Temp Pulse Resp B/P Pulse Ox O2 Delivery O2 Flow Rate FiO2 07/10/17 12:00 97.2 58 18 100/68 97 Room Air Laboratory Tests Test 07/10/17 05:40 White Blood Count 4.1 K/UL (4.8-10.8) L Red Blood Count 4.14 M/UL (4.20-5.40) L Hemoglobin 13.2 G/DL (12.0-16.0) Hematocrit 39.5 % (37.0-47.0) Mean Corpuscular Volume 95 FL (80-99) Mean Corpuscular Hemoglobin 31.7 PG (27.0-31.0) H Mean Corpuscular Hemoglobin Concent 33.3 G/DL (32.0-36.0) Red Cell Distribution Width 12.2 % (11.6-14.8) Platelet Count 195 K/UL (150-450) Mean Platelet Volume 9.5 FL (6.5-10.1) Neutrophils (%) (Auto) 54.9 % (45.0-75.0) Lymphocytes (%) (Auto) 32.2 % (20.0-45.0) Monocytes (%) (Auto) 8.5 % (1.0-10.0) Eosinophils (%) (Auto) 3.2 % (0.0-3.0) H Basophils (%) (Auto) 1.2 % (0.0-2.0) Sodium Level 139 mEQ/L (135-145) Potassium Level 4.9 mEQ/L (3.4-4.9) Chloride Level 102 mEQ/L (98-107) Carbon Dioxide Level 28 mEQ/L (20-30) Anion Gap 9 (5-15) Blood Urea Nitrogen 21 mg/dL (7-23) Creatinine 0.9 mg/dL (0.5-0.9) Estimat Glomerular Filtration Rate > 60 mL/min (>60) Glucose Level 115 mg/dL (74-106) H Calcium Level 9.7 mg/dL (8.6-10.2) Intake and Output 07/09/17 07/10/17 19:00 07:00 Intake Total 840 ml 225 ml Output Total 600 ml Balance 840 ml -375 ml Intake Oral 840 ml IV Total 0 ml 225 ml Output Urine Total 600 ml # Voids 5 # Bowel Movements 1 1 Objective General: alert, cooperative, no distress, appears stated age Head: normocephalic, without obvious abnormality, atraumatic Eyes: conjunctivae/corneas clear. PERRL, EOM's intact Throat: lips, mucosa, and tongue normal. MMM Neck: supple, symmetrical, trachea midline, and no JVD Lungs: clear to auscultation bilaterally Heart: regular rate and rhythm, S1, S2 normal, no murmur, click, rub or gallop Abdomen: soft, non-tender, non-distended, bowel sounds normal; no masses or organomegaly Extremities: extremities normal, atraumatic, no cyanosis or edema Pulses: 2+ and symmetric Skin: skin color, texture, turgor normal; no rashes or lesions Neurologic: grossly normal, no focal deficits Assessment/Plan Problem List: (1) Diverticulosis Assessment & Plan: Cont flagyl and levaquin (2) PUD (peptic ulcer disease) Assessment & Plan: Cont protonix. AWait GI consult. (3) RUQ pain Assessment & Plan: ?gastritis vs peptic ulcer? See - GI consult.; patient refused endoscopy Status: stable Assessment/Plan discharge home am 07/11/17. RUSTY CHAPARRO Jul 10, 2017 17:01
[2017-07-10 20:00] VITALS: BP 95/67
[2017-07-10 23:58] VITALS: BP 93/54
[2017-07-11 04:00] VITALS: BP 96/58
[2017-07-11] MEDS: metroNIDAZOLE 500mg tab ORAL SCH ×2 (05:31→15:10)
[2017-07-11 07:15] LABS: BASOPHILS % (AUTO) 1.3 % (0.0-2.0); EOSINOPHILS % (AUTO) 3.4 % (0.0-3.0); LYMPHOCYTES % (AUTO) 36.5 % (20.0-45.0); MEAN CORPUSCULAR HGB CONC 32.7 G/DL (32.0-36.0); MEAN CORPUSCULAR VOLUME 95 FL (80-99); MEAN PLATELET VOLUME 9.4 FL (6.5-10.1); NEUTROPHILS % (AUTO) 50.8 % (45.0-75.0); PLATELET COUNT 215 K/UL (150-450); RED BLOOD COUNT 4.36 M/UL (4.20-5.40); RED CELL DISTRIBUTION WIDTH 12.1 % (11.6-14.8); WHITE BLOOD COUNT 3.9 K/UL (4.8-10.8)
[2017-07-11 07:33] LABS: CALCIUM 9.9 mg/dL (8.6-10.2); GLOMERULAR FILTRATION RATE 58.5 mL/min (>60); POTASSIUM 5.1 mEQ/L (3.4-4.9)
[2017-07-11 08:08] VITALS: BP 141/76
[2017-07-11] MEDS: Heparin 5000 units/ml inj SUBQ SCH (08:52)
[2017-07-11] MEDS: Levofloxacin 500mg tab ORAL SCH (08:52)
--- NOTE | 2017-07-11 10:56 | GI Progress Note ---
Assessment/Plan Problems: (1) RUQ pain ICD Codes: R10.11 - Right upper quadrant pain SNOMED: 840881577 (2) Diverticulosis ICD Codes: K57.90 - Diverticulosis of intestine, part unspecified, without perforation or abscess without bleeding SNOMED: 186487143 (3) PUD (peptic ulcer disease) ICD Codes: K27.9 - Peptic ulcer, site unspecified, unspecified as acute or chronic, without hemorrhage or perforation SNOMED: 48105665 (4) Abdominal distention ICD Codes: R14.0 - Abdominal distension (gaseous) SNOMED: 37376416 Status: stable Status Narrative Discussed with Dr. Payan. Assessment/Plan abdominal US reviewed >> unremarkable EGD cancelled >> pt refused symptomatic treatment pain mgmt ppi advance diet outpatient GI procedures fu labs Subjective Subjective abdominal pain improved Objective Last 24 Hour Vital Signs Date Time Temp Pulse Resp B/P Pulse Ox O2 Delivery O2 Flow Rate FiO2 07/11/17 08:08 97.9 92 21 141/76 98 Room Air 07/11/17 04:00 98.0 55 18 96/58 96 Room Air 07/10/17 23:58 98.2 54 18 93/54 97 Room Air 07/10/17 20:00 97.9 64 18 95/67 97 Room Air 07/10/17 12:00 97.2 58 18 100/68 97 Room Air Intake and Output 07/10/17 07/11/17 19:00 07:00 Intake Total 1365 ml 475 ml Balance 1365 ml 475 ml Intake Oral 840 ml 475 ml IV Total 525 ml # Voids 3 3 Laboratory Tests Test 07/11/17 05:30 White Blood Count 3.9 K/UL (4.8-10.8) L Red Blood Count 4.36 M/UL (4.20-5.40) Hemoglobin 13.5 G/DL (12.0-16.0) Hematocrit 41.4 % (37.0-47.0) Mean Corpuscular Volume 95 FL (80-99) Mean Corpuscular Hemoglobin 31.0 PG (27.0-31.0) Mean Corpuscular Hemoglobin Concent 32.7 G/DL (32.0-36.0) Red Cell Distribution Width 12.1 % (11.6-14.8) Platelet Count 215 K/UL (150-450) Mean Platelet Volume 9.4 FL (6.5-10.1) Neutrophils (%) (Auto) 50.8 % (45.0-75.0) Lymphocytes (%) (Auto) 36.5 % (20.0-45.0) Monocytes (%) (Auto) 8.0 % (1.0-10.0) Eosinophils (%) (Auto) 3.4 % (0.0-3.0) H Basophils (%) (Auto) 1.3 % (0.0-2.0) Sodium Level 139 mEQ/L (135-145) Potassium Level 5.1 mEQ/L (3.4-4.9) H Chloride Level 101 mEQ/L (98-107) Carbon Dioxide Level 28 mEQ/L (20-30) Anion Gap 10 (5-15) Blood Urea Nitrogen 20 mg/dL (7-23) Creatinine 1.0 mg/dL (0.5-0.9) H Estimat Glomerular Filtration Rate 58.5 mL/min (>60) Glucose Level 95 mg/dL (74-106) Calcium Level 9.9 mg/dL (8.6-10.2) Height (Feet): 5 Height (Inches): 2.00 Weight (Pounds): 134 General Appearance: no apparent distress, alert Cardiovascular: normal rate Respiratory/Chest: normal breath sounds, no respiratory distress Abdominal Exam: normal bowel sounds, non tender, soft Extremities: normal range of motion Alessandra Miramontes N.P. Jul 11, 2017 10:56
[2017-07-11 11:40] VITALS: BP 84/52
[2017-07-11] MEDS ORDERED: PROTONIX40 MG ORAL (12:07)
--- NOTE | 2017-07-11 12:11 | Internal Med Progress Note ---
Subjective Date of Service: Jul 11, 2017 Physician Name Rusty Chaparro Attending Physician Pablito Carranza MD Current Medications Medications (Trade) Dose Ordered Sig/Ruel Route PRN Reason Start Time Stop Time Status Last Admin Dose Admin Acetaminophen (Tylenol) 650 mg Q4H PRN ORAL Mild Pain (Pain Scale 1-3) 07/07/17 17:30 08/06/17 17:29 Acetaminophen (Tylenol) 650 mg Q4H PRN ORAL fever 07/07/17 17:30 08/06/17 17:29 Acetaminophen/ Hydrocodone Bitart ([place] 10/325) 1 ea Q4H PRN ORAL Severe Pain (Pain Scale 7-10) 07/07/17 17:45 07/14/17 17:44 07/07/17 19:06 Acetaminophen/ Hydrocodone Bitart ([place] 5/325) 1 tab Q4H PRN ORAL Moderate Pain (Pain Scale 4-6) 07/07/17 17:45 07/14/17 17:44 Dextrose (Dextrose 50%) STAT PRN IV Hypoglycemia 07/07/17 17:30 08/06/17 17:29 Heparin Sodium (Porcine) (Heparin 5000 units/ml) 5,000 units EVERY 12 HOURS SUBQ 07/08/17 09:00 08/07/17 08:59 07/11/17 08:52 Levofloxacin (Levaquin) 500 mg DAILY ORAL 07/07/17 19:00 07/14/17 18:59 07/11/17 08:52 Metronidazole (Flagyl) 500 mg Q8HR ORAL 07/07/17 22:00 07/14/17 21:59 07/11/17 05:31 Pantoprazole (Protonix) 40 mg ACBREAKFAST ORAL 07/09/17 06:30 08/06/17 18:59 07/11/17 05:31 Sodium Chloride (Sodium Chloride 1000ml bag) 1,000 ml @ 75 mls/hr [id number] IVLG 07/07/17 19:00 08/06/17 18:59 07/10/17 03:57 Allergies: Coded Allergies: No Known Allergies (Unverified , 07/07/17) ROS Limited/Unobtainable: No Constitutional: Reports: no symptoms HEENT: Reports: no symptoms Cardiovascular: Reports: no symptoms Respiratory: Reports: no symptoms Gastrointestinal/Abdominal: Reports: no symptoms Genitourinary: Reports: no symptoms Neurologic/Psychiatric: Reports: no symptoms Subjective 51 YO F admitted with RUQ pain. Cover for Int Med-Dr Carranza. See GI consult- patient refused endoscopy; can have EGD as outpatient. Await discharge home today Objective Last Vital Signs Date Time Temp Pulse Resp B/P Pulse Ox O2 Delivery O2 Flow Rate FiO2 07/11/17 11:40 99.0 55 20 84/52 96 Room Air Laboratory Tests Test 07/11/17 05:30 White Blood Count 3.9 K/UL (4.8-10.8) L Red Blood Count 4.36 M/UL (4.20-5.40) Hemoglobin 13.5 G/DL (12.0-16.0) Hematocrit 41.4 % (37.0-47.0) Mean Corpuscular Volume 95 FL (80-99) Mean Corpuscular Hemoglobin 31.0 PG (27.0-31.0) Mean Corpuscular Hemoglobin Concent 32.7 G/DL (32.0-36.0) Red Cell Distribution Width 12.1 % (11.6-14.8) Platelet Count 215 K/UL (150-450) Mean Platelet Volume 9.4 FL (6.5-10.1) Neutrophils (%) (Auto) 50.8 % (45.0-75.0) Lymphocytes (%) (Auto) 36.5 % (20.0-45.0) Monocytes (%) (Auto) 8.0 % (1.0-10.0) Eosinophils (%) (Auto) 3.4 % (0.0-3.0) H Basophils (%) (Auto) 1.3 % (0.0-2.0) Sodium Level 139 mEQ/L (135-145) Potassium Level 5.1 mEQ/L (3.4-4.9) H Chloride Level 101 mEQ/L (98-107) Carbon Dioxide Level 28 mEQ/L (20-30) Anion Gap 10 (5-15) Blood Urea Nitrogen 20 mg/dL (7-23) Creatinine 1.0 mg/dL (0.5-0.9) H Estimat Glomerular Filtration Rate 58.5 mL/min (>60) Glucose Level 95 mg/dL (74-106) Calcium Level 9.9 mg/dL (8.6-10.2) Intake and Output 07/10/17 07/11/17 19:00 07:00 Intake Total 1365 ml 475 ml Balance 1365 ml 475 ml Intake Oral 840 ml 475 ml IV Total 525 ml # Voids 3 3 Objective General: alert, cooperative, no distress, appears stated age Head: normocephalic, without obvious abnormality, atraumatic Eyes: conjunctivae/corneas clear. PERRL, EOM's intact Throat: lips, mucosa, and tongue normal. MMM Neck: supple, symmetrical, trachea midline, and no JVD Lungs: clear to auscultation bilaterally Heart: regular rate and rhythm, S1, S2 normal, no murmur, click, rub or gallop Abdomen: soft, non-tender, non-distended, bowel sounds normal; no masses or organomegaly Extremities: extremities normal, atraumatic, no cyanosis or edema Pulses: 2+ and symmetric Skin: skin color, texture, turgor normal; no rashes or lesions Neurologic: grossly normal, no focal deficits Assessment/Plan Problem List: (1) Diverticulosis Assessment & Plan: Cont flagyl and levaquin (2) PUD (peptic ulcer disease) Assessment & Plan: Cont protonix. AWait GI consult. (3) RUQ pain Assessment & Plan: ?gastritis vs peptic ulcer? See - GI consult.; patient refused endoscopy Assessment/Plan discharge home today 07/11/17. F/U with GI for EGD as outpatient. RUSTY CHAPARRO Jul 11, 2017 12:10
--- NOTE | 2017-07-11 20:14 | Pulmonology Progress Note ---
Assessment/Plan Problems: (1) RUQ pain (2) Abdominal distention Assessment/Plan pt refused EGD, symptomatic treatment social service consult all labs, meds and notes reviewed dc planning Subjective ROS Limited/Unobtainable: No Constitutional: Reports: no symptoms HEENT: Repors: no symptoms Respiratory: Reports: no symptoms Allergies: Coded Allergies: No Known Allergies (Unverified , 07/07/17) Objective Last 24 Hour Vital Signs Date Time Temp Pulse Resp B/P Pulse Ox O2 Delivery O2 Flow Rate FiO2 07/11/17 11:40 99.0 55 20 84/52 96 Room Air 07/11/17 08:08 97.9 92 21 141/76 98 Room Air 07/11/17 04:00 98.0 55 18 96/58 96 Room Air 07/10/17 23:58 98.2 54 18 93/54 97 Room Air Intake and Output 07/10/17 07/11/17 19:00 07:00 Intake Total 1365 ml 475 ml Balance 1365 ml 475 ml Intake Oral 840 ml 475 ml IV Total 525 ml # Voids 3 3 General Appearance: WD/WN HEENT: normocephalic, atraumatic Respiratory/Chest: chest wall non-tender, lungs clear Abdomen: normal bowel sounds, soft, non tender Extremities: no cyanosis Laboratory Tests 07/11/17 05:30: White Blood Count 3.9L, Red Blood Count 4.36, Hemoglobin 13.5, Hematocrit 41.4, Mean Corpuscular Volume 95, Mean Corpuscular Hemoglobin 31.0, Mean Corpuscular Hemoglobin Concent 32.7, Red Cell Distribution Width 12.1, Platelet Count 215, Mean Platelet Volume 9.4, Neutrophils (%) (Auto) 50.8, Lymphocytes (%) (Auto) 36.5, Monocytes (%) (Auto) 8.0, Eosinophils (%) (Auto) 3.4H, Basophils (%) (Auto ) 1.3, Sodium Level 139, Potassium Level 5.1H, Chloride Level 101, Carbon Dioxide Level 28, Anion Gap 10, Blood Urea Nitrogen 20, Creatinine 1.0H, Estimat Glomerular Filtration Rate 58.5, Glucose Level 95, Calcium Level 9.9 ARMOND MARTIN Jul 11, 2017 20:14
--- NOTE | 2017-07-12 14:20 | Discharge Summary ---
Discharge Summary Hospital Course Date of Admission Jul 07, 2017 at 15:02 Date of Discharge Jul 11, 2017 at 15:58 Admitting Diagnosis HPI Karishma Peres is a 51 year old female who was admitted on Jul 07, 2017 at 15:02 for Intractable Abdominal Pain Hospital Course [id number] Discharge Discharge Disposition Patient was discharged to Home (01) Discharge Diagnoses: Makenzie Recinos NP Jul 12, 2017 14:20
--- NOTE | 2017-07-13 00:47 | Discharge Summary 2 SIG ---
DATE OF ADMISSION: 07/07/2017 DATE OF DISCHARGE: 07/11/2017 CONSULTANTS: 1. Samantha Christopher M.D. 2. Manish Payan M.D. BRIEF HOSPITAL COURSE: The patient is a 51-year-old female, who came in due to right upper quadrant pain. She has a history of peptic ulcer disease and status post perforation. A year ago, the patient had abdominal pain that began on the morning of admission initially epigastric pain and localized to the right upper quadrant with associated nausea and vomiting. She initially presented to [facility] emergency room and was transferred to [facility] for insurance purposes. She was admitted to medical floor for evaluation of right upper quadrant pain and was started empirically on Protonix and was placed on full liquid diet. CAT scan of the abdomen and pelvis showed diverticulosis without diverticulitis. She was started empirically on Flagyl and Levaquin. Liver enzymes were not elevated. Abdominal ultrasound done showed no acute findings. She was recommended esophagogastroduodenoscopy, however, the patient refused. Hemoglobin and hematocrit had been stable. [employer] was called in to aid with placement as the patient is homeless. The patient was eventually discharged. FINAL DIAGNOSES: 1. Acute diverticulosis. 2. Peptic ulcer disease. DISCHARGE MEDICATIONS: The patient was given Protonix once daily. FOLLOWUP: The patient was advised to follow up with PMD. Can have esophagogastroduodenoscopy as outpatient. ACTIVITY: As tolerated. Rusty Franco M.D. I have been assigned to dictate discharge summary on this account and I was not involved in the patient's management. Makenzie Recinos N.P. DR: GENESIS JOB#: [id number] CC:
== END 2017-07-11 15:58 | disposition home or self-care (01) | DRG 384 ==
LOC: 4W 15:02
DX: K27.9 Peptic ulcer, site unspecified, unspecified as acute or chronic, without hemorrhage or perforation (principal); F17.200 Nicotine dependence, unspecified, uncomplicated; K57.90 Diverticulosis of intestine, part unspecified, without perforation or abscess without bleeding; R14.0 Abdominal distension (gaseous); Z59.0 Homelessness
CPT/HCPCS: 36415; 76700; 80048; 80053; 82150; 83690; 85025; 85730; 87081